=== PATIENT | female | born 1960 | race Two or more races ===

== ENCOUNTER → 2017-02-14 | Outpatient (CLI) | payer MEDICAID ==
[~2017-02-14] MED LIST: ACET-66 PO; ALBU8HFA IH; GABA-531 PO; IBUP-2070 PO; MULT1TAB70 PO; TRAM50TA4 PO; VITAD1000 PO
== END | disposition home or self-care (01) ==
LOC: RESP 11:28
PROVIDERS: ATTEND Internal Medicine Critical Care Medicine
DX: G47.33 Obstructive sleep apnea (adult) (pediatric) (principal)
CPT/HCPCS: 94010; 94726; 94727; 94729